=== PATIENT | male | born 1960 | race African-American/Black ===

== ENCOUNTER 2018-06-19 09:13 | Emergency (ER) | payer BC ==
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
--- NOTE | 2018-06-19 12:16 | EKG ---
Test Date: 2018-06-19 Test Time: 09:23:09 Distribution Sales Representative: [place] MEASUREMENT RESULTS: Intervals: Rate: 80 VT: 140 QRSD: 90 QT: 354 QTc: 408 [place]: P: 54 VT: 140 QRS: -10 T: 6 INTERPRETIVE STATEMENTS: Normal sinus rhythm Moderate voltage criteria for LVH, may be normal variant Borderline ECG No previous ECG available for comparison Electronically Signed On 06-19-18 12:15:14 CDT by Maxwell Pfeiffer
== END 2018-06-19 10:16 | disposition home or self-care (01) ==
LOC: ER 09:13
DX: I16.0 Hypertensive urgency (principal); I10 Essential (primary) hypertension; E11.9 Type 2 diabetes mellitus without complications; Z88.2 Allergy status to sulfonamides
CPT/HCPCS: 93005; 99284